=== PATIENT | male | born 1985 | race African-American/Black ===

== ENCOUNTER 2019-06-15 10:26 | Inpatient (IN) ==
[2019-06-15 11:20] LABS: INFLUENZA A NEGATIVE (NEGATIVE); INFLUENZA B NEGATIVE (NEGATIVE)
--- NOTE | 2019-06-15 11:46 | PROVIDER DOCUMENTATION ---
HPI-Abdominal Pain/GI Problem - General Chief Complaint: Mouth Pain Stated Complaint: FLANK PAIN / TONGUE RASH Time Seen by Provider: 06/15/19 11:08 Source: patient Allergies/Adverse Reactions: Patient Allergies Allergy/AdvReac Type Severity Reaction Status Date / Time No Known Allergies Allergy Verified 05/29/19 08:55 Home Medications: Home Medication List Medication Instructions Recorded Confirmed Last Taken Type Dicyclomine [Bentyl] 20 mg PO TID AC #20 cap 05/29/19 06/15/19 Unknown Rx Sucralfate [Carafate Liquid] 1 gm PO Q6HR #400 ml 05/29/19 06/15/19 Unknown Rx Acetaminophen with Codeine 1 tab PO Q6H PRN PRN 06/15/19 06/15/19 Unknown History [Tylenol with Codeine #3 Tablet] Pantoprazole [Protonix] 40 mg PO DAILY@0700 06/15/19 06/15/19 Unknown History - History of Present Illness-ABD Nature of Presenting Problems: [id number] presents to the ER with c/o a "tongue rash" and ongoing abd pain. He reports last week, he had an EGD by Dr Roberson and was told he had gastritis and a viral infection. He reports he is still having stomach pain. He states his stools are black, however, the patient was prescribed carafate by Dr Roberson. Abdominal Pain Onset Location: reports: generalized abdomen Quality of Pain: reports: aching Severity in ED: reports: mild Onset/Duration: reports: other (x 1 month) Exposure to sick contacts?: No Associated Symptoms: reports: nausea Last BM: this morning Bruising or Bleeding Gums?: No Similar Symptoms Previously?: Yes Recently seen or treated by another doctor?: Yes Review of Systems - Adult - REVIEW OF SYSTEMS - ADULT Constitutional: reports: see HPI. denies: chills, fever Eyes: reports: no symptoms reported Ears, Nose, Mouth & Throat: reports: no symptoms reported Cardiovascular: reports: no symptoms reported Respiratory: reports: no symptoms reported Gastrointestinal: reports: see HPI, abdominal pain, nausea. denies: diarrhea, vomiting Genitourinary: reports: no symptoms reported Musculoskeletal: reports: no symptoms reported Integumentary: reports: no symptoms reported Neurological: reports: no symptoms reported Psychiatric: reports: no symptoms reported Endocrine: reports: no symptoms reported Hematologic/Lymphatic: reports: no symptoms reported Allergic/Immunologic: reports: no symptoms reported All Other Systems: Reviewed and Negative Past History - Adult - PAST MEDICAL HISTORY-ADULT Review of Records: reports: Old Records Reviewed, Nursing Assessment Review, Medications Reviewed, Social history reviewed & non-contributory. Major Childhood Illnesses: reports: denies history Cardiovascular: reports: HTN Respiratory: reports: denies history Gastrointestinal: reports: GERD, other (gastritis) Obstetrical/Gynecological: reports: denies history Genitourinary: reports: denies history Musculoskeletal: reports: denies history Neurological: reports: denies history Psychiatric: reports: denies history Endocrine/Immune: reports: denies history Other Conditions: reports: other (seasonal allergies) - PRIOR SURGERIES/PROCEDURES Surgical/Procedure History: reports: none, other (sinus surgery) - IMMUNIZATION STATUS Childhood Immunizations: See Nurse Assessment Flu Vaccine: See Nurse Assessment - FAMILY HISTORY Family History: reviewed, not pertinent Physical Exam-General - PHYSICAL EXAM-ADULT Initial Vital Signs Reviewed: Yes - CONSTITUTIONAL General Appearance: alert, mild distress - EYES Eyes: PERRL/EOMI, pink conjunctivae - HEAD, EARS, NOSE, MOUTH & THROAT HENMT: TMs normal - NECK Neck: full range of motion, supple - RESPIRATORY Respiratory: lungs clear, normal breath sounds - CARDIOVASCULAR Cardiovascular: regular rate, rhythm - GASTROINTESTINAL (ABDOMEN) Abdominal Exam: normal bowel sounds, distended, tenderness (generalized) - LYMPHATIC Lymphatic: no adenopathy - MUSCULOSKELETAL Back Exam: normal inspection Extremity: non-tender, normal gait - SKIN Integumentary: normal color, warm/dry - NEUROLOGIC Neurologic: grossly normal - PSYCHIATRIC Psych/Mental Status: normal mood/affect, oriented x 3 Progress - PLAN OF CARE/RESULTS Progress/Plan/Lab Results: Vital Signs - 8 hr 06/15/19 10:46 Temperature 99.1 F Pulse Rate 104 H Respiratory Rate 18 Blood Pressure 138/83 O2 Sat by Pulse Oximetry 97 Laboratory Results - last 24 hr 06/15/19 06/15/19 10:50 10:52 Influenza A (Rapid) NEGATIVE Influenza B (Rapid) NEGATIVE Group A Strep Rapid NEGATIVE Orders Category Date Time Status DIRECT [DIRECT STREP PL] Stat Lab 06/15/19 10:52 Completed Flu [INFLUENZA SCREEN PL] Stat Lab 06/15/19 10:50 Completed HH [HGB AND HCT] [HEME] Stat Lab 06/15/19 11:40 Ordered UA NIMS W/REFLEX CULT [URINALYSIS] Stat Lab 06/15/19 11:39 Uncollected URINE DRUG SCREEN PL Stat Lab 06/15/19 11:39 Uncollected patient verbalizes an understanding of POC and agrees with treatment rendered here today. He will be admitted to the hospital Result Diagrams: 06/16/19 05:38 06/16/19 05:38 - CONSULTS/PCP/HOSPITALIST Notification #1 *Consult/PCP/Hospitalist*: Dr Ewing Time Discussed: 13:08 Reason/Comments: Pancreatitis Consult Disposition: Admit (admit to hospitalist will see tomorrow) #2 Consult: Dr Nunn Time Discussed: 13:09 Reason/Comments: Pancreatitis Consult Disposition: Admit Departure - Departure Date of Disposition Decision: 06/15/19 Time of Disposition Decision: 15:21 DIAGNOSIS: Acute pancreatitis Qualifiers: Pancreatitis type: unspecified pancreatitis type Acute pancreatitis compl ication: uninfected necrosis Qualified Code(s): K85.91 - Acute pancreatitis with uninfected necrosis, unspecified Disposition: ADMITTED INPATIENT 09 Certified Medical Emergency: Emergent Condition: Critical - Critical Care Note This patient required my direct & personal management of CC.: No Attestation - Physician/ TASHIA Attestation Patient care was provided by Advanced Practice Provider:: Yes Advanced Practice Provider:: Torsten New Advanced Practice Provider documentation review:: The Mid-level provider documen tation, treatment plan and medical decision making was reviewed by the physician who agrees with all treatment and medical decision making by the P. The physician spent face to face time with patient:: No Advanced Practice Provider documentation review:: Supervising physician onsite and consulted in the evaluation and care of this patient. The physician did not have a face to face encounter with the patient.
[2019-06-15 12:14] LABS: URINE SOURCE CLEAN CATCH
[2019-06-15 12:17] LABS: BILIRUBIN URINE SMALL (NEGATIVE); BLOOD URINE SMALL (NEGATIVE); COLOR YELLOW; GLUCOSE URINE NEGATIVE (NEGATIVE); KETONE URINE NEGATIVE (NEGATIVE); LEUKOCYTES URINE NEGATIVE (NEGATIVE); NITRITE URINE NEGATIVE (NEGATIVE); PROTEIN URINE 200 mg/dL (NEGATIVE); SP GRAVITY URINE 1.032; TURBIDITY URINE HAZY (CLEAR); UROBILINOGEN URINE 8 mg/dL (NORMAL)
[2019-06-15 12:29] LABS: UR AMPHETAMINES QUAL NONE DETECTED (NONE DETECT); UR BARBITUATES QUAL NONE DETECTED (NONE DETECT); UR BENZODIAZEPIN QUAL NONE DETECTED (NONE DETECT); UR CANNABINOIDS QUAL NONE DETECTED (NONE DETECT); UR COCAINE QUAL NONE DETECTED (NONE DETECT); UR METHADONE QUAL NONE DETECTED (NONE DETECT); UR METHAMPHETAMINE QUAL NONE DETECTED (NONE DETECT); UR OPIATES QUAL PRESUMPTIVE POSITIVE (NONE DETECT); UR OXYCODONE QUAL NONE DETECTED (NONE DETECT); UR PCP QUAL NONE DETECTED (NONE DETECT); UR PROPOXYPHENE QUAL NONE DETECTED (NONE DETECT); UR TCA QUAL NONE DETECTED (NONE DETECT)
[2019-06-15 12:33] LABS: UR EPITHELIAL CELLS <10 /HPF (<10); URINE BACTERIA 2+ /HPF; URINE WBC <10 /HPF (<10)
[2019-06-15 12:34] LABS: URINE CASTS GRANULAR PRESENT
--- NOTE | 2019-06-15 12:41 | Diag Imaging Result Doc PS360 ---
CT ABD/PELVIS W/IV CONT ONLY - 06/15/2019 INDICATION: abd pain COMPARISON: 05/29/2019 FINDINGS: There are several large acute peripancreatic fluid collections at the body and tail of the pancreas. The largest of these is fully within the pancreas itself. The appearance suggests necrosis of a central portion of the pancreas at the junction of the body and tail. This largest fluid collection measures 4.1 x 2.7 cm. No free air. 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 No bowel obstruction. No peritoneal free fluid. No biliary dilation. The liver, gallbladder, spleen, adrenals, and kidneys enhance normally. Urinary bladder, prostate, and rectum are normal. The bones are intact. IMPRESSION: Pancreatitis. Acute peripancreatic fluid collections. Apparent central necrosis of a portion of the pancreas, at the junction of the body/tail. Partial occlusion of the splenic vein. This exam was performed using automated exposure control, adjustment of mA or kV according to patient size, and/or use of iterative reconstruction technique Electronically signed by Rudy Robles 06/15/2019 12:39 PM
[2019-06-15 12:59] LABS: BASO# 0.02 X1000 (0.0-0.2); BASO% 0.2 % (0.0-0.8); EOS# 0.16 X1000 (0.0-0.7); EOS% 1.6 % (0.0-10.0); HEMATOCRIT 33.3 % (42.0-52.0); HEMOGLOBIN 10.8 g/dL (14.0-18.0); IMM GRAN# 0.03 X1000 (0.0-0.04); IMM GRAN% 0.3 % (0.0-0.5); MCH 28.6 PG (27-31); MCHC 32.4 g/dL (33-37); MCV 88.3 FL (81-99); MONO# 0.94 X1000 (0.11-0.59); MONO% 9.4 % (1.7-9.3); MPV 10.7 FL (7.4-10.4); NEUT# 7.68 X1000 (1.4-6.5); NEUT% 76.5 % (42.2-75.2); PLT 294 X1000 (130-400); RBC 3.77 XMIL (4.7-6.1); RDW 15.4 % (11.5-14.5); WBC 10.03 X1000 (4.8-10.8)
[2019-06-15 13:08] LABS: AGAP 12; ALBUMIN 3.4 g/dL (3.5-5.0); ALKALINE PHOSPHATASE 146 U/L (32-122); BUN 14 mg/dL (8-22); CALCIUM 9.1 mg/dL (8.8-10.2); CHLORIDE 95 mmol/L (98-107); COSMO 271; CREATININE 0.8 mg/dL (0.7-1.2); ESTIMATED GFR > 60; GLUCOSE 109 mg/dL (70-104); GOT 72 U/L (10-34); GPT 115 U/L (10-44); POTASSIUM 4.4 mmol/L (3.5-5.1); SODIUM 135 mmol/L (136-145); TCO2 28 mmol/L (25-35); TOTAL PROTEIN 7.9 g/dL (6.3-8.3)
[2019-06-15 13:43] LABS: AMYLASE 452 U/L (20-200)
[2019-06-15] MEDS: PROTONIX IV SCH (14:02)
[2019-06-15] MEDS: ZOFRAN IV PRN ×2 (14:03→18:29)
[2019-06-15] MEDS: SODIUM CHLORIDE 0.9% INJ SCH (14:03)
[2019-06-15 14:05] LABS: LIPASE 583 U/L (13-60)
[2019-06-15] MEDS: DILAUDID IV PRN ×3 (14:06→21:59)
[2019-06-15] MEDS: NS 1,000 ML IV SCH ×2 (14:17→21:59)
--- NOTE | 2019-06-15 21:08 | HISTORY AND PHYSICAL ---
CHIEF COMPLAINT: Mouth pain. HISTORY OF PRESENT ILLNESS: The patient is a 33-year-old male who presented to the emergency department with a rash on his tongue as well as mouth pain. He also notes that he recently was told he had gastritis and a viral infection. He has been having increasing stomach pain. He had a EGD a week ago by Dr. Roberson. He does report a history of black stools. No bright red blood in his stool. He states this was a few days ago. ALLERGIES: No known drug allergies. MEDICATIONS: Bentyl, Carafate and Protonix. FAMILY HISTORY: Noncontributory. REVIEW OF SYSTEMS: Positive abdominal pain and nausea. No real vomiting. Denies any diarrhea or constipation. Denies hematochezia, hemoptysis or hematemesis. Denies fevers or chills. Does have epigastric abdominal pain. Denies focalized numbness, tingling or weakness in his extremities. Denies headaches, blurred vision or change in vision. Denies chest pain, palpitations or shortness of breath. PAST MEDICAL HISTORY: Hypertension, gastritis, seasonal allergies. SOCIAL HISTORY: The patient denies smoking, drinking or other illicit substance use. PHYSICAL EXAMINATION: VITAL SIGNS: Reviewed. Temperature 99 degrees, pulse 104, respiratory rate 18, BP 138/83, saturation 97% on room air. GENERAL: The patient is awake, pleasant. He is in no respiratory distress, but he is somewhat ill-appearing secondary to his pain. HEENT: Normocephalic. NECK: Supple. CARDIOVASCULAR: Regular rate. CHEST: Clear, nonlabored. ABDOMEN: Soft, obese. Tender in the epigastric region. EXTREMITIES: Moves all extremities. NEUROLOGIC: No changes. ASSESSMENT: 1. Acute pancreatitis. 2. Geographic tongue. 3. History of gastritis. PLAN: We are going to admit the patient to the hospital. NPO, pain control, IV fluids, and we will follow. cc: Jose Nunn MD
[2019-06-16] MEDS: DILAUDID IV PRN ×6 (01:14→21:03)
[2019-06-16] MEDS: PROTONIX IV SCH ×2 (01:15→14:04)
[2019-06-16] MEDS: ZOFRAN IV PRN ×3 (01:21→14:17)
[2019-06-16 06:31] LABS: HEMATOCRIT 30.1 % (42.0-52.0); HEMOGLOBIN 9.5 g/dL (14.0-18.0); MCH 28.1 PG (27-31); MCHC 31.6 g/dL (33-37); MCV 89.1 FL (81-99); MPV 10.9 FL (7.4-10.4); RBC 3.38 XMIL (4.7-6.1); RDW 15.6 % (11.5-14.5); WBC 9.73 X1000 (4.8-10.8)
[2019-06-16 06:39] LABS: AGAP 13; ALKALINE PHOSPHATASE 129 U/L (32-122); BUN 14 mg/dL (8-22); CALCIUM 8.7 mg/dL (8.8-10.2); CHLORIDE 103 mmol/L (98-107); COSMO 278; CREATININE 0.8 mg/dL (0.7-1.2); ESTIMATED GFR > 60; GLUCOSE 101 mg/dL (70-104); GOT 44 U/L (10-34); GPT 83 U/L (10-44); MAGNESIUM 2.2 mg/dL (1.5-2.7); POTASSIUM 4.3 mmol/L (3.5-5.1); SODIUM 139 mmol/L (136-145); TCO2 23 mmol/L (25-35); TOTAL PROTEIN 7.1 g/dL (6.3-8.3)
[2019-06-16 06:41] LABS: CHOLESTEROL 107 mg/dL (0-200); HDL 16 mg/dL (35-55); LDL 56 mg/dL; TRIGLYCERIDES 175 mg/dL (39-160); VLDL 35 mg/dL
[2019-06-16] MEDS: NS 1,000 ML IV SCH ×2 (08:21→16:31)
[2019-06-16] MEDS: SODIUM CHLORIDE 0.9% INJ SCH (14:04)
[2019-06-16] MEDS: DIFLUCAN 100 MG/NS 100 MG/50 ML IVPB IV SCH (14:04)
--- NOTE | 2019-06-16 18:32 | PROGRESS NOTE ---
DATE: 06/16/2019 SUBJECTIVE: Patient states he is feeling a lot better, although still having intense abdominal pain; this has improved. Pain med is helping. OBJECTIVE: Vital signs: Temperature 98, pulse 87, respiratory rate 18, BP 132/70. General: Patient is pleasant. He is in no respiratory distress. HEENT: Normocephalic. Neck: Supple. Cardiovascular: Regular rate. Chest: Clear and unlabored. Abdomen: Soft. Tender in the epigastric region, although less than yesterday. Nondistended. Extremities: Moves all extremities. Neurologic: No changes. ASSESSMENT: 1. Acute pancreatitis. 2. Geographic tongue. 3. Transaminitis. AST, ALT both improving. PLAN: We are going to keep NPO, except ice chips. Continue pain medications. His triglycerides are 175. cc: Jose Nunn MD
[2019-06-16] MEDS: TYLENOL PO PRN (22:49)
[2019-06-17] MEDS: PROTONIX IV SCH ×2 (01:17→14:54)
[2019-06-17] MEDS: NS 1,000 ML IV SCH ×2 (02:27→12:02)
[2019-06-17] MEDS: DILAUDID IV PRN ×4 (04:23→18:18)
--- NOTE | 2019-06-17 09:56 | Diag Imaging Result Doc PS360 ---
EXAM: KUB ABDOMEN HISTORY: pain TECHNIQUE: Single view COMPARISON: None. FINDINGS: The bowel gas pattern is nonobstructive. No organomegaly, mass effect, or abnormal calcifications are identified. IMPRESSION: No acute abnormality is appreciated. Electronically signed by Miryam Adam 06/17/2019 9:53 AM
[2019-06-17] MEDS: SODIUM CHLORIDE 0.9% INJ SCH (14:54)
[2019-06-17] MEDS: DIFLUCAN 100 MG/NS 100 MG/50 ML IVPB IV SCH (14:54)
--- NOTE | 2019-06-17 18:16 | PROGRESS NOTE ---
DATE: 06/17/2019 SUBJECTIVE: The patient notes he is lot more nauseated today. Denies any fevers, chills denies cough, congestion. PHYSICAL: Temperature 98 degrees, pulse 78, respiratory 18, BP 113/68.General: Patient is pleasant he is in no respiratory distress. HEENT: Normocephalic. Neck: Supple. CV: Regular rate. Chest: Clear. Abdomen: Soft. Extremities: Moves all extremities. Neuro: No changes. ASSESSMENT: 1. Acute pancreatitis . 2. Acute transaminitis. 3. Geographic tongue. PLAN: Patient will be continued in the hospital. We are going to check a KUB and will follow. Continue pain control, will attempt advance his diet. cc: Jose Nunn MD
[2019-06-17] MEDS: TYLENOL PO PRN (21:58)
[2019-06-18] MEDS: PROTONIX IV SCH ×2 (01:11→15:24)
[2019-06-18] MEDS: DILAUDID IV PRN (01:18)
[2019-06-18] MEDS: NS 1,000 ML IV SCH ×2 (01:48→07:33)
[2019-06-18] MEDS: NORCO-7.5 PO PRN ×2 (10:08→17:58)
[2019-06-18] MEDS: DIFLUCAN 100 MG/NS 100 MG/50 ML IVPB IV SCH (13:37)
[2019-06-18 13:53] VITALS: BP 132/80
[2019-06-18] MEDS: SODIUM CHLORIDE 0.9% INJ SCH (15:24)
[2019-06-18] MEDS: ZOFRAN IV PRN (15:33)
[2019-06-18] MEDS ORDERED: ZOFRAN ODT PO ONE (17:52)
--- NOTE | 2019-06-18 23:59 | DISCHARGE SUMMARY ---
ADMISSION DATE: 06/15/2019 DISCHARGE DATE: 06/18/2019 PRIMARY CARE PHYSICIAN: Dr. Luke Aguirre. ADMISSION DIAGNOSES: 1. Acute pancreatitis. 2. Geographic tongue. 3. History of gastritis. DISCHARGE DIAGNOSES: 1. Acute pancreatitis, improved. 2. An acute transaminitis. 3. Geographic tongue. SUMMARY OF FINDINGS: This is a 33-year-old male who presented to the ER with a rash on his tongue, as well as mouth pain. He notes he was recently told he had gastritis and a viral infection, had increased stomach pain. Had an EGD a week ago by Dr. Roberson. He reported a history of black stools but no bright red blood in his stool. He was found to have an amylase of 452, lipase 583. CT of the abdomen and pelvis showed pancreatitis, acute janet-pancreatic fluid collection, apparent central necrosis of a portion of the pancreas at the junction of the body and tail, partial occlusion of the splenic vein. He was admitted. We rechecked an abdomen x-ray on 06/17/2019 that showed no acute abnormality appreciated. He was initially held n.p.o. We have advanced his diet as tolerated. Currently at a GI soft diet and tolerated well. His liver enzymes have improved, so it is now felt that he can safely be discharged home. DISCHARGE MEDICATIONS: Include [place] 7.5 one p.o. q.4 hours p.r.n. #20 with no refills, Tylenol with codeine #3 one p.o. q.6 hours p.r.n., Bentyl 20 mg p.o. t.i.d. a.c., pantoprazole 40 mg p.o. daily, Carafate liquid 1 g p.o. q.6 hours. FOLLOWUP: He needs to follow up with his primary care physician in 1 to 2 weeks and call their office for an appointment. TIME SPENT: 35 minutes. Dictated by GLADYS Clement for Jose Nunn MD cc: GLADYS Clement MD Wayne E. Thomas, MD
--- NOTE | 2019-06-19 04:59 | DISCHARGE SUMMARY ---
ADMISSION DATE: 06/15/2019 DISCHARGE DATE: 06/18/2019 On discharge, patient is awake and alert. His elevated AST and ALT's have improved. His triglyceride is 175. He is afebrile. His abdominal pain is almost completely resolved. His has also improved. He will be discharged home to follow up outpatient with primary care. Discussed with patient no alcohol although he currently doesn't drink. Most likely viral is the cause of his pancreatitis. cc: Jose Nunn MD MTDD
== END 2019-06-18 18:20 | disposition home or self-care (01) | DRG 440 ==
LOC: P.ED 10:26 → P.MEDSURG 14:30
PROVIDERS: ATTEND Family Medicine